=== PATIENT | male | born 1950 | race Caucasian/White ===

== ENCOUNTER → 2017-05-13 | Outpatient (CLI) | payer MEDICARE, OTHER ==
[~2017-05-13] MED LIST: ACETAMINOPHEN325 M1 PO; ASPIRIN EC81 M1; ASPIRIN81 M2 PO; LEVOTHYROXINE 0.1 MG PO; LIPITOR80 MG; LOPRESSOR25; NEXIUM40 MG PO; NITROSTAT0.4 MG SUBQ; SYNTHROID88 MCG PO; TOPROL XL25 MG PO
== END ==
LOC: M.MRI 07:12
DX: D17.79 Benign lipomatous neoplasm of other sites (principal)

== ENCOUNTER → 2017-08-20 | Outpatient (CLI) | payer MEDICARE, OTHER ==
[2017-08-20 07:52] LABS: ALBUMIN 3.6 g/dL (3.4-5.0); ALKALINE PHOSPHATASE 63 U/L (46-116); CHOLESTEROL 145 mg/dL (<200); DIRECT BILIRUBIN 0.1 mg/dL (<0.1-0.3); HDL CHOLESTEROL 40 mg/dL (>40); LDL CHOLESTEROL 78 mg/dL (<100); SERUM ASSESSMENT Clear; SGOT 16 U/L (15-37); SGPT 22 U/L (30-65); TC:HDL 3.6 Ratio (Not establshd); TOTAL BILIRUBIN 0.5 mg/dL (<0.1-1.0); TRIGLYCERIDE 137 mg/dL (<150); VLDL 27 mg/dL (<40)
== END ==
LOC: M.LAB 07:09
PROVIDERS: Internal Medicine
DX: E78.00 Pure hypercholesterolemia, unspecified (principal); E03.9 Hypothyroidism, unspecified

== ENCOUNTER → 2019-01-27 | Outpatient (CLI) | payer MEDICARE, OTHER ==
--- NOTE | 2019-01-27 16:41 | CARDNUC ---
[place] [address] CARDIAC NUCLEAR IMAGING REPORT Name: ANNETTAELVIELULY Devries Room: [facility]#: [id number] Admission: 01/27/19 Attend Phys: Az Streeter, Discharge: Date of : 52 Date of Service: 01/27/19 1641 Report #: [id number] THIS REPORT FOR: //name// APPROVED REPORT Study performed: 01/27/2019 10:03:11 Exam: Nuclear Stress Test Indication: CAD s/p ME, CAD s/p PCI, CAD s/p CABG Patient Location: Out-Patient Stress Tech: Rita Rivera Stress Nurse: Bernie Jaffe Tech:CAREY Nunes Ht: 5 ft 5 in Wt: 183 lbs BSA: 1.90 m2 BMI: 30.44 Medical History Medical History: Angina, CAD s/p CABG, CAD s/p ME, CAD s/p stent, Pre-diabetic, HTN, Hyperlipidemia. Medications: Metoprolol, Losartan, Crestor, NTG, ASA 81 Mg. Allergies: No known drug allergies Cardiac Risk Factors: Age, DM, FHX of CAD, HTN, Hyperlipidemia, Past Smoker. Previous Cardiac Procedures: CABG, PCI, Myocardial infarction Pretest Chest Pain Characteristics: No chest pain Exercise History: Physically active Physical Disabilities: Knees Meds Held (24 hrs): Metoprolol. Stress Test Details Stress Test: Exercise stress testing was performed using a Moe protocol. HR Resting HR: 66 bpm Max Heart Rate (APMHR): 153 bpm Max HR Achieved: 141 bpm Target HR (85% APMHR): 130 bpm % of APMHR: 92 BP Resting BP: 141/78 mmHg Max BP: 216/77 mmHg ECG Resting ECG: [place] [address] CARDIAC NUCLEAR IMAGING REPORT Name: MARY LITTLEJOHN Room: [facility]#: [id number] Admission: 01/27/19 Attend Phys: Az Streeter, Discharge: Date of : 52 Date of Service: 01/27/19 1641 Report #: [id number] Stress ECG: Sinus Tachycardia ST Change: Upsloping ST depression Maximum ST Deviation: 0.5 mm Arrhythmia: VPC's Recovery ECG: Sinus Rhythm Recovery ST Change: Upsloping ST depression Recovery ST Deviation: 0.5 mm Recovery Arrhythmia: VPC's Clinical Reason for Termination: Completed protocol, Target HR achieved. Stress Symptoms: Dyspnea, Leg Fatigue. Exercise duration: 9 min 59 sec Exercise capacity: 11.80 METs Overall Exercise Capacity for Age: Superior The patient tolerated standard Moe protocol exercise without significant cardiac symptoms. Nurse Comments A 68 year old male presented for Moe Protocol Nuclear Stress Test. Patient tolerated test well. Recovery unremarkable. Patient was escorted by staff to Nuclear Medicine for images. Patient was stable with no complaints at that time. Stress ECG Conclusion The baseline 12-lead EKG shows sinus rhythm without significant ST or T wave abnormality. EKGs during and post exercise showed sinus rhythm and sinus tachycardia with 0.[address] segment depression. There are occasional unifocal premature ventricular contractions. NM EXAM: Myocardial Perfusion REST/STRESS Imaging Protocol: Rest Tc-99m/Stress Tc-99m 1 day Resting Data Rest SPECT myocardial perfusion imaging was performed in supine position 30 minutes following the intravenous injection of 10.8 mCi of Tc-99m Sestamibi. Time of rest injection: 0755 Date: 01/27/2019 The images were gated to evaluate regional wall motion and calculate left ventricular ejection fraction. Administration Route: IV Administration Site: Right Hand Exercise Stress At peak stress, the patient was injected intravenously with 34.7m[place] [address] CARDIAC NUCLEAR IMAGING REPORT Name: ANNETTA,SIELULY Devries Room: [facility]#: [id number] Admission: 01/27/19 Attend Phys: Az Streeter, Discharge: Date of : 52 Date of Service: 01/27/19 1641 Report #: [id number] of Tc-99m Sestamibi. Time of stress injection: 1000 Date: 01/27/2019 Administration Route: IV Administration Site: Right Hand Gated Stress SPECT was performed 30 minutes after stress injection. The images were gated to evaluate regional wall motion and calculate left ventricular ejection fraction. Prone imaging was performed. Study Quality Study: Good Artifact: No artifact Study Data At rest, the left ventricular ejection fraction was 69%.. Post stress, the left ventricular ejection was 67%.. TID = 0.71. Perfusion Images obtained at rest and post stress show a focal small in size mild to moderate intensity defect involving the basal to mid lateral wall. No other defects were noted. Wall Motion There is preserved left ventricular systolic function. There is a septal wall motion abnormality consistent with prior bypass procedure. 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 No other significant fixed or reversible defects were identified. Global LV systolic function is fairly well-preserved. This is a low risk study. <Conclusion> The baseline 12-lead EKG shows sinus rhythm without significant ST or T wave abnormality. EKGs during and post exercise [place] [address] CARDIAC NUCLEAR IMAGING REPORT Name: MARY LITTLEJOHN [id number] Admission: 01/27/19 Attend Phys: Az Streeter, Discharge: Date of : 52 Date of Service: 01/27/19 1641 Report #: [id number] and sinus tachycardia with 0.[address] segment depression. There are occasional unifocal premature ventricular contractions. <ELECTRONICALLY SIGNED> By: Az Streeter MD, FACC 01/27/191640 40 40 Az Streeter MD, FACC /INF
== END ==
LOC: M.NUC 08-06 08:00
DX: I25.10 Atherosclerotic heart disease of native coronary artery without angina pectoris (principal); I10 Essential (primary) hypertension; E78.5 Hyperlipidemia, unspecified; E11.9 Type 2 diabetes mellitus without complications; Z95.5 Presence of coronary angioplasty implant and graft; Z87.891 Personal history of nicotine dependence; Z79.899 Other long term (current) drug therapy